=== PATIENT | female | born 1945 | race Caucasian/White ===

== ENCOUNTER 2019-04-12 13:33 | Inpatient (IN) | payer MEDICARE, BC ==
[~2019-04-12] VITALS: Ht 162.6 cm; Wt 83.9 kg
--- NOTE | 2019-04-12 13:43 | NUR ---
"DISCHARGE FROM [facility]. REFUSING TO STAY AT [facility]" PT AAOX4, -SOB, NAD NOTED, VSS ,PENDING MD ANDINO
[2019-04-12] MEDS ORDERED: MAG355OR18 PO (14:27)
[2019-04-12] MEDS ORDERED: MAGN400O6 PO (14:27)
[2019-04-12] MEDS ORDERED: OXYC-128 PO (14:27)
[2019-04-12] MEDS ORDERED: SENN176S PO (14:27)
[2019-04-12] MEDS ORDERED: DOCU-141 PO (14:27)
[2019-04-12] MEDS ORDERED: ONDA4TAB5 PO (14:27)
[2019-04-12] MEDS ORDERED: LORA-259 PO (14:27)
[2019-04-12] MEDS ORDERED: ASCO500T10 PO (14:27)
[2019-04-12] MEDS ORDERED: CEFT1FRO2 IV (14:27)
[2019-04-12] MEDS ORDERED: VENL150C58 PO (14:27)
[2019-04-12] MEDS ORDERED: RIVA10TA PO (14:27)
[2019-04-12] MEDS ORDERED: CYAN-51 PO (14:27)
[2019-04-12] MEDS ORDERED: METO25TA6 PO (14:27)
[2019-04-12] MEDS ORDERED: INSU100V39 SQ ×2 (14:27)
[2019-04-12] MEDS ORDERED: MORP30TA59 IM (14:27)
[2019-04-12] MEDS ORDERED: LACT1CAP61 PO (14:27)
[2019-04-12] MEDS ORDERED: FERR325T23 PO (14:27)
[2019-04-12] MEDS ORDERED: ACET-73 PO (14:27)
[2019-04-12] MEDS ORDERED: TEMA15CA PO (14:27)
[2019-04-12] MEDS ORDERED: ATOR20TA PO (14:27)
[2019-04-12] MEDS ORDERED: GABA-534 PO (14:27)
--- NOTE | 2019-04-12 14:44 | NUR ---
ORDERED FOOD TRAY
[2019-04-12 14:53] LABS: BASOPHILS % (AUTO) 0.6 % (0.0-2.0); EOSINOPHILS % (AUTO) 0.8 % (0.0-6.0); HEMATOCRIT 30 % (33-45); HEMOGLOBIN 9.8 g/dL (11.5-14.8); LYMPHOCYTES # (AUTO) 1.2 /CMM (0.8-4.8); MEAN CORPUSCULAR HGB CONC 33 g/dl (31.0-36.0); MEAN CORPUSCULAR VOLUME 91 fL (82-100); MONOCYTES # (AUTO) 0.5 /CMM (0.1-1.30); MONOCYTES % (AUTO) 8.1 % (2.0-12.0); NEUTROPHILS # (AUTO) 4.3 /CMM (1.8-8.9); NEUTROPHILS % (AUTO) 70.5 % (43.0-81.0); PLATELET COUNT (AUTO) 335 /CMM (150-450); RED BLOOD CELL COUNT(AUTO) 3.27 MIL/uL (4.0-5.2); WHITE BLOOD COUNT (AUTO) 6.1 K/uL (4.3-11.0)
[2019-04-12 15:04] LABS: CALCIUM, SERUM 9.9 mg/dL (8.5-10.1); CARBON DIOXIDE 29 mmol/L (21-32); CHLORIDE 108 mmol/L (98-107); CREATININE 0.6 mg/dL (0.6-1.3); GLUCOSE 96 mg/dL (74-106); SODIUM SERUM 141 mmol/L (136-145); UREA NITROGEN, BLOOD 14 mg/dL (7-18)
[2019-04-12 15:10] LABS: ACETAMINOPHEN 3 ug/ml (10-30); ALANINE AMINOTRANSFERASE 15 U/L (12-78); ALBUMIN 2.8 g/dL (3.4-5.0); ALKALINE PHOSPHATASE 96 U/L (46-116); ASPARTATE AMINOTRANSFERASE 14 U/L (15-37); BILIRUBIN,DIRECT 0.1 mg/dL (0.0-0.2); BILIRUBIN,TOTAL 0.2 mg/dL (0.2-1.0); TOTAL PROTEIN, SERUM 6.1 g/dL (6.4-8.2)
[2019-04-12 15:11] LABS: ALCOHOL, BLOOD < 3 mg/dL (0-0); SALICYLATE 2.3 mg/dL (2.8-20.0)
--- NOTE | 2019-04-12 15:32 | NUR ---
CALLED DR MCKEON, LEFT VOICEMAIL.
--- NOTE | 2019-04-12 15:38 | NUR ---
CALLED SEX OFFENDER TREATMENT PROFESSIONAL (MARIO ALBERTO), SHE GAVE A 1 HOUR ETA
[2019-04-12 16:14] LABS: APPEARANCE,URINE Clear (CLEAR); BILIRUBIN,URINE Negative (NEGATIVE); BLOOD, URINE Negative Ery/uL (NEGATIVE); COLOR,URINE Yellow (YELLOW); KETONES,URINE Negative (NEGATIVE); LEUKOCYTE ESTERASE ,URINE Trace (NEGATIVE); NITRITE, URINE Negative (NEGATIVE); PH,URINE 6.5 (5.0-8.0); PROTEIN,URINE Negative (NEGATIVE); UGLUCOSE Negative (NEGATIVE); UROBILINOGEN,URINE 0.2 EU/dL (0.2)
[2019-04-12 16:42] LABS: BACTERIA,URINE Few /HPF (None Seen); RBC,URINE 0-2 /HPF (0-2); SQUAMOUS EPITHELIAL CELL,UR Few /HPF (None Seen); WBC,URINE 0-2 /HPF (0-3)
[2019-04-12] MEDS ORDERED: oxyCODONE/APAP (5/325 MG) 1 UDTAB TABLET PO ONE (17:30)
[2019-04-12] MEDS ORDERED: oxyCODONE/APAP (5/325 MG) 1 UDTAB TABLET ONE (17:33)
--- NOTE | 2019-04-12 18:07 | NUR ---
BED 211-B
--- NOTE | 2019-04-12 18:14 | NUR ---
REPORT GIVEN TO UMESH JAQUEZ FOR MONA, PT WILL BE TRANSPORTED TO [facility]
--- NOTE | 2019-04-12 19:15 | NUR ---
PT TRANSPORTED TO [facility]
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
[2019-04-12] MEDS ORDERED: MAGNESIUM HYDROXIDE 30 ML UDC PO PRN (20:00)
[2019-04-12] MEDS ORDERED: MAG HYDROX/AL HYDROX/SIMETH 30 ML UDC PO PRN (20:00)
[2019-04-12] MEDS ORDERED: ACETAMINOPHEN 325 MG TABLET PO PRN (20:00)
[2019-04-12] MEDS ORDERED: LORAZEPAM 0.5 MG TABLET PO PRN (20:00)
[2019-04-12] MEDS ORDERED: TEMAZEPAM 7.5 MG CAPSULE PO PRN (20:00)
[2019-04-12] MEDS ORDERED: BLOOD SUGAR DIAGNOSTIC 1 EACH STRIP IN ONE (20:00)
[2019-04-12] MEDS: ATORVASTATIN 10 MG TABLET PO SCH (22:06)
[2019-04-12] MEDS: oxyCODONE/APAP (5/325 MG) 1 UDTAB TABLET PO PRN (22:58)
[2019-04-13 01:25] VITALS: BP 104/57
[2019-04-13] MEDS: oxyCODONE/APAP (5/325 MG) 1 UDTAB TABLET PO PRN ×4 (03:08→16:25)
[2019-04-13] MEDS ORDERED: DEXTROSE 50%-WATER 50 ML DISP.SYRIN IV PRN (05:30)
--- NOTE | 2019-04-13 06:38 | NUR ---
CALLED DR. GALLAGHER 2X UNABLE TO REACH LEFT A MESSAGE AWAITING FOR CALLBACK WILL ENDORSE TO NEXT SHIFT NURSE TO FOLLOW UP.
--- NOTE | 2019-04-13 06:42 | NUR ---
CALLED FAMILY MEMBER TO NOTIFY UNABLE TO REACH THE VOICEMAIL IS FULL AND CANNOT LEAVE A MESSAGE WILL ENDORSE TO NEXT SHIFT NURSE TO FOLLOW UP.
--- NOTE | 2019-04-13 07:16 | NUR ---
DR. GALLAGHER MADE AWARE OF THE ADMISSION AND WITH ORDER.
[2019-04-13] MEDS: BLOOD SUGAR DIAGNOSTIC 1 EACH STRIP IN SCH ×4 (07:40→21:38)
[2019-04-13 07:59] LABS: CHOLESTEROL 120 mg/dL (<200); HDL CHOLESTEROL 78 mg/dL (40-60); LDL 38 mg/dL (0-99); TRIGLYCERIDES 49 mg/dL (30-150)
[2019-04-13] MEDS: INSULIN REGULAR, HUMAN 100 UNIT/ML 3 ML VIAL SQ PRN ×3 (07:59→16:58)
[2019-04-13 08:00] VITALS: BP 154/93
[2019-04-13] MEDS: CEFTRIAXONE 1 G VIAL IM SCH ×2 (08:51→09:07)
[2019-04-13] MEDS: ASCORBIC ACID 500 MG TABLET PO SCH ×2 (08:51→16:24)
[2019-04-13] MEDS: CYANOCOBALAMIN 500 MCG TABLET PO SCH (08:51)
[2019-04-13] MEDS: DOCUSATE SODIUM 100 MG CAPSULE PO SCH ×2 (08:52→16:24)
[2019-04-13] MEDS: FERROUS SULFATE (325 MG) 325 MG/TAB TABLET PO SCH ×2 (08:52→16:24)
[2019-04-13] MEDS: METOPROLOL TARTRATE 25 MG TABLET PO SCH ×2 (08:52→21:37)
[2019-04-13] MEDS: GABAPENTIN 300 MG CAPSULE PO SCH ×3 (08:52→16:24)
[2019-04-13] MEDS: ACIDOPHILUS/BULGARICUS 1 EACH TAB.CHEW PO SCH ×2 (08:52→16:25)
[2019-04-13] MEDS: SENNOSIDES/DOCUSATE SODIUM 1 TAB TABLET PO SCH (08:52)
--- NOTE | 2019-04-13 09:07 | NUR ---
RN NOTES PT GIVEN 0800 ROCEPHIN IM X1 DAILY. PT WAS NOT ON UNIT AT 0800 04/12/19.
--- NOTE | 2019-04-13 10:33 | NUR ---
CAROLINA met with Roshan and Rasta business solutions architect coordinators at [facility] [place] Address: [address], [place] [address] who stated the facility is unable to take pt back due to not being able to provide the level of care pt requires as pt has become more psychotic and requires more psychiatric attention. Per Roshan, he stated that pt refused to cooperate with care and treatment and has declined since her last psychiatrist hospitalization at [facility].
--- NOTE | 2019-04-13 11:07 | NUR ---
CAROLINA received a call from pts DPOA and best friend Marleen [phone] who provided CAROLINA with collateral information. Per DPOA pt had a drastic cognitive decline in February 2019 while vacationing in [place], DPOA stated that pt was fine and lucid and all of a sudden pt "totally flipped" and became unmanageable and started getting naked and refusing care and began stating bizarre things. CAROLINA informed her that [facility] is not taking pt back due to her behavior and LESLY understood and stated that she wishes for pt to be discharge to a permanent SNF. LESLY is also requesting a call from psychiatrist to discuss pts treatment and discharge plan. CAROLINA stated that she would make Dr. Melendrez aware.
[2019-04-13 11:44] LABS: ALANINE AMINOTRANSFERASE 19 U/L (12-78); ALBUMIN 2.8 g/dL (3.4-5.0); ALKALINE PHOSPHATASE 92 U/L (46-116); ASPARTATE AMINOTRANSFERASE 31 U/L (15-37); BILIRUBIN,TOTAL 0.2 mg/dL (0.2-1.0); CALCIUM, SERUM 9.7 mg/dL (8.5-10.1); CARBON DIOXIDE 19 mmol/L (21-32); CHLORIDE 104 mmol/L (98-107); CREATININE 0.7 mg/dL (0.6-1.3); GLUCOSE 160 mg/dL (74-106); POTASSIUM 4.1 mmol/L (3.5-5.1); SODIUM SERUM 137 mmol/L (136-145); TOTAL PROTEIN, SERUM 6.2 g/dL (6.4-8.2); UREA NITROGEN, BLOOD 15 mg/dL (7-18)
--- NOTE | 2019-04-13 14:25 | NUR ---
Initial Discharge Plan: Pt currently resides at [facility] [place] located at [address] [place] [id number]; . Per facility, the pt cannot return to the facility. SW will work with the pt and the MD regarding appropriate discharge planning. SW will form a safe and proper discharge plan.
--- NOTE | 2019-04-13 14:33 | NUR ---
GROUP: SW prompted pt to participate in group therapy today discussing "discharge planing" Pt stated that she was feeling tired and wanted to stay in her room. SW provided intervention and discussed treatment plan and discharge plan with pt. SW informed pt that [facility] is not taking her back due to her behavior. Pt was surprised and upset stating that she really wanted to return but understood the decision [facility] made to not accept her back. Pt then stated, "I'm a tough placement I know I need a place where I'm mentally stimulated I need a place where I won't be bored and that can accommodate my heeds. I'm upset to hear that I can't return to [facility], I just want a place where I'll be happy and content." Pt stated that she is willing to cooperate and work with SW in order to get her placed in a [facility] SNF.
[2019-04-13 16:00] VITALS: BP 124/92
[2019-04-13] MEDS: RIVAROXABAN 10 MG TABLET PO SCH (16:40)
[2019-04-13 20:00] VITALS: BP 153/98
[2019-04-13] MEDS: ALPRAZOLAM 0.25 MG TABLET PO PRN (20:27)
[2019-04-13] MEDS ORDERED: GABAPENTIN 300 MG CAPSULE PO SCH (21:00)
[2019-04-13] MEDS: ATORVASTATIN 10 MG TABLET PO SCH (21:39)
[2019-04-13] MEDS ORDERED: TRAZODONE 50 MG TABLET PO SCH (22:00)
[2019-04-14] MEDS: BLOOD SUGAR DIAGNOSTIC 1 EACH STRIP IN SCH ×4 (07:39→20:30)
[2019-04-14 08:00] VITALS: BP 121/88
[2019-04-14] MEDS: METOPROLOL TARTRATE 25 MG TABLET PO SCH ×2 (08:13→21:00)
[2019-04-14] MEDS: CYANOCOBALAMIN 500 MCG TABLET PO SCH (08:13)
[2019-04-14] MEDS: FERROUS SULFATE (325 MG) 325 MG/TAB TABLET PO SCH ×2 (08:13→16:48)
[2019-04-14] MEDS: SENNOSIDES/DOCUSATE SODIUM 1 TAB TABLET PO SCH (08:14)
[2019-04-14] MEDS: ASCORBIC ACID 500 MG TABLET PO SCH ×2 (08:14→16:48)
[2019-04-14] MEDS: ACIDOPHILUS/BULGARICUS 1 EACH TAB.CHEW PO SCH ×2 (08:14→16:48)
[2019-04-14] MEDS: oxyCODONE/APAP (5/325 MG) 1 UDTAB TABLET PO PRN ×4 (08:15→22:22)
[2019-04-14] MEDS: PAROXETINE HCL 20 MG TABLET PO SCH (08:19)
[2019-04-14] MEDS: VENLAFAXINE XR 75 MG CAP.SR.24H PO SCH (08:19)
[2019-04-14] MEDS: DOCUSATE SODIUM 100 MG CAPSULE PO SCH ×3 (08:30→16:58)
[2019-04-14] MEDS: INSULIN REGULAR, HUMAN 100 UNIT/ML 3 ML VIAL SQ PRN ×3 (08:33→20:32)
[2019-04-14] MEDS: GABAPENTIN 400 MG CAPSULE PO SCH ×4 (08:33→20:04)
[2019-04-14 16:07] VITALS: BP 108/57
[2019-04-14] MEDS: RIVAROXABAN 10 MG TABLET PO SCH (16:50)
[2019-04-14 20:00] VITALS: BP 124/71
[2019-04-14] MEDS: MORPHINE SULFATE SR 15 MG TABLET.SA PO SCH (20:06)
--- NOTE | 2019-04-14 20:20 | NUR ---
GPS RN NOTE: PATIENT REQUESTED TO HAVE HER BLOOD SUGAR CHECKED INSTEAD OF 10PM, BECAUSE PATIENT C/O GETTING HUNGRY AND WANTED TO EAT. BS = 252, COVERAGE GIVEN ORDERED. SNACKS GIVEN REQUESTED. PATIENT APPRECIATED. WILL CONTINUE TO MONITOR
[2019-04-14] MEDS: clonazePAM 0.5 MG TABLET PO SCH (21:13)
[2019-04-14] MEDS: ATORVASTATIN 10 MG TABLET PO SCH (21:14)
[2019-04-15] MEDS: oxyCODONE/APAP (5/325 MG) 1 UDTAB TABLET PO PRN ×3 (05:28→23:53)
[2019-04-15] MEDS: BLOOD SUGAR DIAGNOSTIC 1 EACH STRIP IN SCH ×4 (07:51→22:10)
[2019-04-15] MEDS: INSULIN REGULAR, HUMAN 100 UNIT/ML 3 ML VIAL SQ PRN ×4 (07:54→22:17)
[2019-04-15 08:00] VITALS: BP 113/62
[2019-04-15] MEDS: DOCUSATE SODIUM 100 MG CAPSULE PO SCH ×2 (08:28→16:49)
[2019-04-15] MEDS: FERROUS SULFATE (325 MG) 325 MG/TAB TABLET PO SCH ×2 (08:28→16:43)
[2019-04-15] MEDS: ACIDOPHILUS/BULGARICUS 1 EACH TAB.CHEW PO SCH ×2 (08:29→16:49)
[2019-04-15] MEDS: MORPHINE SULFATE SR 15 MG TABLET.SA PO SCH ×2 (08:29→20:53)
[2019-04-15] MEDS: CYANOCOBALAMIN 500 MCG TABLET PO SCH (08:30)
[2019-04-15] MEDS: SENNOSIDES/DOCUSATE SODIUM 1 TAB TABLET PO SCH (08:30)
[2019-04-15] MEDS: ASCORBIC ACID 500 MG TABLET PO SCH ×2 (08:30→16:49)
[2019-04-15] MEDS: VENLAFAXINE XR 75 MG CAP.SR.24H PO SCH (08:30)
[2019-04-15] MEDS: GABAPENTIN 400 MG CAPSULE PO SCH ×4 (08:30→20:53)
[2019-04-15] MEDS: PAROXETINE HCL 20 MG TABLET PO SCH (08:31)
[2019-04-15] MEDS: METOPROLOL TARTRATE 25 MG TABLET PO SCH ×2 (08:31→20:54)
[2019-04-15] MEDS ORDERED: diphenhydrAMINE HCL 50 MG/ML VIAL IM/IV STA (09:55)
--- NOTE | 2019-04-15 10:03 | NUR ---
RN NOTES PATIENT COMPLAINED THAT SHE'S HAVING ADVERSE REACTIONS FROM PSYCH MEDS THAT WAS GIVEN THIS MORNING. PT WITH COMPLAINED OF MILD SOB, ITCHING AND STAED THAT HER MOUTH/TONGUE FEELS HEAVY. PSYCH MEDS THAT WAS GIVEN WERE EFFEXOR XR 75MG CAP AND PAXIL 20MG TAB WHICH ARE GIVEN ONCE DAILY AND HAD NO ADVERSE REACTIONS BEFORE. DR GALLAGHER CALLED WITH ORDER TO GIVE BENADRYL 25MG IM AND IF NO EFFECT WILL ADMINISTERED ONE DOSE AGAIN. ORDERED CARRIED OUT. WILL CONTINUE TO MONITOR PT.
[2019-04-15 16:00] VITALS: BP 111/50
[2019-04-15] MEDS: RIVAROXABAN 10 MG TABLET PO SCH (16:47)
--- NOTE | 2019-04-15 16:57 | NUR ---
RN NOTES PT C/O SHARP THROBBING LOWER BACK PAIN WITH SCALE OF 8/10. PRN PERCOCET 5/325MG P.O. GIVEN AT 1641. WILL CONTINUE TO MONITOR AND REASSESS PT.
--- NOTE | 2019-04-15 17:48 | NUR ---
RN NOTES PATIENT SEEN BY DR HERNADEZ THIS AFTERNOON. INFORMED DR HERNADEZ REGARDING ADVERSED /ALLERGIC REACTIONS INCIDENT THIS MORNING FROM UNKNOWN MEDICATIONS, BUT PT VERBALIZED TO DR HERNADEZ THAT IT'S PROBABLY FROM PAXIL. WILL CONTINUE TO MONITOR AND ENDORSE TO INCOMING NURSE.
[2019-04-15] MEDS ORDERED: diphenhydrAMINE HCL ELIX 25 MG/10 ML UDC PO PRN (18:00)
[2019-04-15 20:12] VITALS: BP 102/69
--- NOTE | 2019-04-15 22:00 | NUR ---
GPS RN NOTE: CLONOPIN 0.5 MG HELD D/T BP 97/53 P=63. EXPLAINED TO THE PATIENT AND PATIENT APPEARED TO BE COOPERATIVE AND APPRECIATIVE. WILL CONTINUE TO MONITOR Q15 MINS FOR SAFETY
[2019-04-15] MEDS: ATORVASTATIN 10 MG TABLET PO SCH (22:09)
[2019-04-16] MEDS: clonazePAM 0.5 MG TABLET PO SCH ×2 (01:16→22:00)
--- NOTE | 2019-04-16 01:28 | NUR ---
GPS RN NOTE: CLONOPIN 0.5 MG GIVEN PER PATIENT REQUEST FOR SLEEPING AND ANXIETY. V/S 115/73 P98 R=20. WILL CONTINUE TO MONITOR Q15 MINS FOR SAFETY
[2019-04-16] MEDS: oxyCODONE/APAP (5/325 MG) 1 UDTAB TABLET PO PRN ×3 (06:36→21:39)
[2019-04-16 08:00] VITALS: BP 123/79
[2019-04-16] MEDS: BLOOD SUGAR DIAGNOSTIC 1 EACH STRIP IN SCH ×4 (08:03→22:15)
[2019-04-16] MEDS: METOPROLOL TARTRATE 25 MG TABLET PO SCH ×2 (09:00→21:40)
[2019-04-16] MEDS: MORPHINE SULFATE SR 15 MG TABLET.SA PO SCH ×2 (09:36→21:01)
[2019-04-16] MEDS: FERROUS SULFATE (325 MG) 325 MG/TAB TABLET PO SCH ×2 (09:37→16:55)
[2019-04-16] MEDS: ACIDOPHILUS/BULGARICUS 1 EACH TAB.CHEW PO SCH ×2 (09:37→16:55)
[2019-04-16] MEDS: VENLAFAXINE XR 75 MG CAP.SR.24H PO SCH (09:37)
[2019-04-16] MEDS: DOCUSATE SODIUM 100 MG CAPSULE PO SCH ×2 (09:37→16:55)
[2019-04-16] MEDS: SENNOSIDES/DOCUSATE SODIUM 1 TAB TABLET PO SCH (09:38)
[2019-04-16] MEDS: GABAPENTIN 400 MG CAPSULE PO SCH ×4 (09:38→21:40)
[2019-04-16] MEDS: ASCORBIC ACID 500 MG TABLET PO SCH ×2 (09:39→16:55)
[2019-04-16] MEDS: CYANOCOBALAMIN 500 MCG TABLET PO SCH (09:39)
[2019-04-16] MEDS: INSULIN REGULAR, HUMAN 100 UNIT/ML 3 ML VIAL SQ PRN ×2 (12:52→22:17)
--- NOTE | 2019-04-16 13:03 | NUR ---
CAROLINA faxed SNF referral to Christine, operations manager/coordinator at [facility] Address: [address] [place] [address] , Vee, operations manager/coordinator at [facility] Address: [address] [place] [address] , Angie, operations manager/coordinator at [facility] Address: [address] [place] [address] for review.
--- NOTE | 2019-04-16 15:55 | NUR ---
Group Note: SW encouraged the pt to attend group therapy to discuss discharge planning but the pt stated that she is currently in distress regarding her discharge planning because the previous facility that she was residing in does not want her to return. She stated that she did not want to attend group with other individuals to discuss this topic. SW stated that she needs to understand the reason for the facility not wanting her to return and to look towards a different placement that may be more appropriate for her.
[2019-04-16] MEDS: ALPRAZOLAM 0.25 MG TABLET PO PRN (15:57)
[2019-04-16 16:00] VITALS: BP 132/81
[2019-04-16] MEDS: RIVAROXABAN 10 MG TABLET PO SCH (16:57)
[2019-04-16 19:56] VITALS: BP 118/68
[2019-04-16] MEDS: ATORVASTATIN 10 MG TABLET PO SCH (22:15)
[2019-04-17] MEDS: oxyCODONE/APAP (5/325 MG) 1 UDTAB TABLET PO PRN ×3 (03:01→16:08)
[2019-04-17] MEDS: ALPRAZOLAM 0.25 MG TABLET PO PRN (04:25)
[2019-04-17 08:00] VITALS: BP 127/86
[2019-04-17] MEDS: BLOOD SUGAR DIAGNOSTIC 1 EACH STRIP IN SCH ×2 (08:04→12:17)
--- NOTE | 2019-04-17 08:35 | NUR ---
SW received call from Angie, care team coordinator scheduler at [facility] Address: [address], [place] [address] stating that pt was no accepted due to being in psychiatric unit.
--- NOTE | 2019-04-17 08:38 | NUR ---
SW received a call from Vee, habitat management coordinator at [facility] Address: [address], [place] [address] stating they will not be able to accommodate pts needs.
--- NOTE | 2019-04-17 08:42 | NUR ---
SW received a call from Christine, school admissions representative at [facility] Address: [address], [place] [address] stating they will not be able to take pt due to her suicidal ideation and pt wanting a private room.
[2019-04-17] MEDS: DOCUSATE SODIUM 100 MG CAPSULE PO SCH (08:59)
[2019-04-17] MEDS: SENNOSIDES/DOCUSATE SODIUM 1 TAB TABLET PO SCH (08:59)
[2019-04-17 09:00] VITALS: BP 127/86
[2019-04-17] MEDS: FERROUS SULFATE (325 MG) 325 MG/TAB TABLET PO SCH (09:00)
[2019-04-17] MEDS: ACIDOPHILUS/BULGARICUS 1 EACH TAB.CHEW PO SCH (09:00)
[2019-04-17] MEDS: ASCORBIC ACID 500 MG TABLET PO SCH (09:00)
[2019-04-17] MEDS: CYANOCOBALAMIN 500 MCG TABLET PO SCH (09:00)
[2019-04-17] MEDS: MORPHINE SULFATE SR 15 MG TABLET.SA PO SCH (09:00)
[2019-04-17] MEDS: GABAPENTIN 400 MG CAPSULE PO SCH ×2 (09:00→12:38)
[2019-04-17] MEDS: METOPROLOL TARTRATE 25 MG TABLET PO SCH (09:00)
--- NOTE | 2019-04-17 09:06 | NUR ---
CAROLINA faxed SNF referrals to Jose, volunteer coordinator at [facility] Address: [address] [place] [address] and Bree volunteer coordinator at [facility] Address: [address] [place] [address] for review.
--- NOTE | 2019-04-17 09:15 | NUR ---
CAROLINA faxed SNF referral to CJ, volunteer recruitment coordinator at [facility] Address: [place] [address] for review.
--- NOTE | 2019-04-17 09:21 | NUR ---
CAROLINA faxed SNF referral to Bree, records management coordinator at [facility] Address: [address] [place] [address] for review.
--- NOTE | 2019-04-17 11:52 | NUR ---
SW met with karan Morales at [facility] Address: [address], [place], [place] [address] who came on this present day to assess pt.
--- NOTE | 2019-04-17 11:56 | NUR ---
CAROLINA faxed SNF referral to Lamont, rn admissions at [facility] Address: [address], [place] [address] for review.
--- NOTE | 2019-04-17 11:59 | NUR ---
CAROLINA met with karan Morales at [facility] Address: [address], [place] [address] who stated pt has kalia accepted to the facility. SW will facilitate discharge for this present day.
[2019-04-17] MEDS: INSULIN REGULAR, HUMAN 100 UNIT/ML 3 ML VIAL SQ PRN (12:18)
--- NOTE | 2019-04-17 14:07 | NUR ---
DISCHARGE NOTE: Pt will be discharged at 3:00pm via [facility] to [facility] Address: [address] [place] [address] . Pts DPOA Marleen [phone] has been notified and agreed with discharge plan. SW provided DPOA with facility contact information. Pts mood is euthymic with congruent affect. Pt denied visual/auditory hallucinations and denied suicidal/homicidal ideation. Pt will be under the care of Psychiatrist: Dr. Pelon Laird Address: [address] [place] [address] and Legal Biller: Dr. Timo Meraz [id number] [place] [address] . The multidisciplinary exit care form was done, printed, signed, and given to the patient.
--- NOTE | 2019-04-17 14:15 | NUR ---
patient dischage note Patient discharged to [facility] Address: [address] [place] [address] . in stable condition.no sob no distress noted.axox4.mild anxiety noted.Pts DPOA Marleen [phone] has been notified and agreed with discharge plan. Pt denied visual/auditory hallucinations and denied suicidal/homicidal ideation. Pt will be under the care of Psychiatrist: Dr. Pelon Laird Address: [address] [place] [address] and Stringing Machine Operator: Dr. Timo Meraz [address] [address] . The multidisciplinary exit care done, printed, signed, and given to the patient.patient verbalized understanding.took all belongings.report given to Elsi JAQUEZ at [facility].report given to EMT.All discharge paper work signed by patient handed over to emt.
--- NOTE | 2019-04-17 16:00 | NUR ---
RN NOTE VERIFIED DISCHARGING ORDER FROM AND WITH MEDICATIONS TO BE CONTINUE.PATIENT MADE AWARE.
--- NOTE | 2019-04-17 17:25 | NUR ---
patient dischage note Patient discharged to [facility] Address: [address] [place] [address] . in stable condition.no sob no distress noted.axox4.mild anxiety noted.Pts LESLY Hawley [phone] has been notified and agreed with discharge plan. Pt denied visual/auditory hallucinations and denied suicidal/homicidal ideation. Pt will be under the care of Psychiatrist: Dr. Pelon Laird Address: [address] [place] [address] and Graphic Design Professor: Dr. Timo Meraz [address], [place] [address] . The multidisciplinary exit care done, printed, signed, and given to the patient.patient verbalized understanding.took all belongings.report given to Elsi JAQUEZ at [facility].report given to EMT.All discharge paper work signed by patient handed over to emt. Addendum: 04/17/19 at 1731 by BLANCA HUSSEIN RN patient discharged at 1615
[2019-04-18] MEDS ORDERED: VENLAFAXINE XR 37.5 MG CAP.SR.24H PO SCH (09:00)
== END 2019-04-17 16:15 | DRG 881 ==
LOC: ER 13:40 → GPS 18:07
PROVIDERS: ADMIT Psychiatry & Neurology Psychiatry; ATTEND Internal Medicine
DX: F32.9 Major depressive disorder, single episode, unspecified (principal); F05 Delirium due to known physiological condition; N39.0 Urinary tract infection, site not specified; F23 Brief psychotic disorder; I10 Essential (primary) hypertension; E78.5 Hyperlipidemia, unspecified; Z86.718 Personal history of other venous thrombosis and embolism; Z86.711 Personal history of pulmonary embolism; G62.9 Polyneuropathy, unspecified; M54.9 Dorsalgia, unspecified; D64.9 Anemia, unspecified; F03.90 Unspecified dementia, unspecified severity, without behavioral disturbance, psychotic disturbance, mood disturbance, and anxiety; E11.9 Type 2 diabetes mellitus without complications; G89.4 Chronic pain syndrome; Z85.3 Personal history of malignant neoplasm of breast; K21.9 Gastro-esophageal reflux disease without esophagitis; Z79.01 Long term (current) use of anticoagulants; Z96.653 Presence of artificial knee joint, bilateral; M19.90 Unspecified osteoarthritis, unspecified site; Z88.0 Allergy status to penicillin; Z88.2 Allergy status to sulfonamides; F39 Unspecified mood [affective] disorder
CPT/HCPCS: 36415; 80048-TC; 80053-TC; 80061-TC; 80076-TC; 80305; 81000-TC; 82962-TC; 85025-TC; 87081-TC; G0480; J0696; J1200; J1815